=== PATIENT | female | born 1960 | race Caucasian/White ===

== ENCOUNTER 2022-07-17 10:03 | Observation (INO) | payer BC ==
[2022-07-17] MEDS ORDERED: Sodium Chloride 0.9% 1,000 ML IV SCH (10:15)
[2022-07-17] MEDS ORDERED: Levalbuterol HCl 1.25 MG/3 ML Neb INH ONE (10:45)
[2022-07-17] MEDS: Sodium Chloride 7% 4 ML Neb Soln NEB SCH ×3 (11:22→16:55)
[2022-07-17] MEDS ORDERED: Budesonide 0.5 MG/2 ML Neb Susp NEB ONE ×2 (11:30→22:00)
[2022-07-17] MEDS ORDERED: LORazepam 0.5 MG Tab PO ONE (11:49)
[2022-07-17] MEDS ORDERED: Albuterol 0.083% 2.5 MG/3 ML Neb Soln NEB PRN (17:39)
[2022-07-17] MEDS ORDERED: Ondansetron 4 MG Tab.DIS PO PRN (17:39)
[2022-07-17] MEDS: Sodium Chloride 0.9% 1,000 ML IV SCH (18:06)
[2022-07-17] MEDS ORDERED: Codeine/guaiFENesin 10-100 MG/5 ML Syrup 5 ML Cup PO ONE (22:00)
[2022-07-17] MEDS ORDERED: Benzonatate 100 MG Cap PO ONE (22:48)
[2022-07-18] MEDS ORDERED: guaiFENesin/Dextromethorphan 100-10 MG/5 ML Soln 5 ML Cup PO PRN (04:46)
[2022-07-18 06:19] VITALS: BP 127/71; PULSE 86
[2022-07-18] MEDS: Sodium Chloride 0.9% 1,000 ML IV SCH (07:14)
== END 2022-07-18 09:15 | disposition home or self-care (01) ==
LOC: KA.IVTHER 10:03 → UNDOADMOB 16:49 → KA.MS 16:49
PROVIDERS: ADMIT Nurse Practitioner Family; ATTEND Nurse Practitioner Family
DX: R05.9 Cough, unspecified (principal); B97.4 Respiratory syncytial virus as the cause of diseases classified elsewhere; Z79.899 Other long term (current) drug therapy; Z88.2 Allergy status to sulfonamides; Z88.1 Allergy status to other antibiotic agents; Z88.8 Allergy status to other drugs, medicaments and biological substances; Z88.3 Allergy status to other anti-infective agents; Z79.82 Long term (current) use of aspirin; Z79.84 Long term (current) use of oral hypoglycemic drugs
CPT/HCPCS: A9270-GY; G0378; J7030; J7612-GY